=== PATIENT | male | born 1955 | race Caucasian/White ===

== ENCOUNTER → 2018-01-31 11:12 | Outpatient (CLI) | payer OTHER, SELFPAY ==
--- NOTE | 2018-01-31 | DI.RAD.S_ITS ---
PROCEDURE: XR RIBS RT 2V INDICATIONS: OTHER CHEST PAIN TECHNIQUE: 2 views of the right ribs were acquired. COMPARISON: None. FINDINGS: Surgical changes and devices: None. BB skin marker overlies the right lower rib cage. Bones and chest wall: No fractures or dislocations. No suspicious bony lesions. Overlying soft tissues appear unremarkable. Lungs and pleura: The visualized lung appears clear. No pleural effusions or pneumothorax are visible. IMPRESSION: No right-sided rib abnormality. No pleural or pulmonary abnormality seen. Dictated by: Lenin Rosa M.D. on 01/31/2018 at 11:58 Approved by: Lenin Rosa M.D. on 01/31/2018 at 11:59
== END ==
PROVIDERS: Visit Provider Internal Medicine
DX: R07.89 Other chest pain (principal)
CPT/HCPCS: 71100

== ENCOUNTER → 2019-07-03 06:43 | Outpatient (CLI) | payer OTHER, SELFPAY ==
--- NOTE | 2019-07-03 | DI.ECHO.S_ITS ---
[facility]+ [facility] +---------+ : : [address] : : : : [id number] : : : : Phone: [phone]+ Echocardiogram Report + + :Name: BERLIN PUGH Study Date: 07/03/2019 Height: 72 in : :[facility] Weight: 204 lb : : Gender: Male BSA: 2.1 m2 : :: 1955 Age: 64 yrs BP: 134/84 mmHg: :Reason For Study: MURMUR : : Performed By: Tem Staff : :Referring: BELEN FOSTER : + + Interpretation Summary 1) Mildly increased left ventricular thickness (concentric) with normal size, normal wall motion, and normal systolic function (EF 60-65%). 2) Normal right ventricular size and function. 3) The left atrium is severely dilated. The right atrium is moderately dilated. 4) No significant valvular abnormalities. 5) No prior Echo available for comparison. Procedure: A two-dimensional transthoracic echocardiogram with color flow and Doppler was performed. The study quality was technically adequate. There is no prior echocardiogram noted for this patient. The patient was in normal sinus rhythm during the exam. Left Ventricle: The left ventricle is borderline dilated. There is mild concentric left ventricular hypertrophy. Left ventricular systolic function is normal. The ejection fraction is estimated to be 60-65%. Left ventricular wall motion is normal. Right Ventricle: The right ventricle is normal in size and function. Atria: The left atrium is severely dilated. The right atrium is moderately dilated. The interatrial septum is intact with no evidence for an atrial septal defect. Mitral Valve: The mitral valve is normal in structure and function. There is trace mitral regurgitation. Aortic Valve: The aortic valve is trileaflet. The aortic valve opens well. There is no aortic valve stenosis. No aortic regurgitation is present. Tricuspid Valve: The tricuspid valve is normal in structure and function. There is mild tricuspid regurgitation. Pulmonary artery pressures cannot be estimated because of the lack of a measurable TR jet velocity. Pulmonic Valve: The pulmonic valve is normal in structure and function. There is trace pulmonic regurgitation. Great Vessels: The aortic root is normal size. The dimensions of the ascending aorta are normal. The pulmonary artery is normal size. The inferior vena cava was not visualized. Pericardium/ Pleura There is a trivial pericardial effusion noted. There is no pleural effusion. MMode/2D Measurements & Calculations LVIDd: 5.7 cm LVOT diam: 2.2 cm LVIDs: 3.7 cm Ao root diam: 3.5 cm FS: 34.7 % EPSS: 0.23 cm IVSd: 1.3 cm LVPWd: 1.2 cm LV saab. diameter/BSA (cm/m^2): 2.7 LV sys. diameter/BSA (cm/m^2): 1.7 LA A2 area: 31.6 cm2 RA long axis: 6.7 cm LA A4 area: 30.5 cm2 RA area: 25.0 cm2 LA length (vol): 6.4 cm RA vol: 79.2 ml LA vol: 126.7 ml RA : 36.9 ml/m2 LA vol index: 59.0 ml/m2 TAPSE: 2.9 cm Doppler Measurements & Calculations Ao V2 max: 173.6 cm/sec LVOT Max Martín: 168.6 cm/sec Ao V2 mean: 116.3 cm/sec LV V1 max P.4 mmHg Ao max P.1 mmHg LV V1 VTI: 38.3 cm Ao mean P.3 mmHg MARTELL(I,D): 3.7 cm2 Ao V2 VTI: 38.7 cm MARTELL(V,D): 3.6 cm2 sev ratio: 0.99 MARTELL indexed to BSA (cm^2/m^2): 1.7 MV E max martín: 76.6 cm/sec TR max martín: 296.4 cm/sec MV A max martín: 74.0 cm/sec TR max P.5 mmHg MV E/A: 1.0 PA V2 max: 111.9 cm/sec Med Peak E' Martín: 10.6 cm/sec PA V2 mean: 82.8 cm/sec E/E' med: 7.2 PA mean P.1 mmHg Lat Peak E' Martín: 10.8 cm/sec PA Accel Time: 0.13 sec E/E' lat: 7.1 E/e' average: 7.2 MV dec time: 0.14 sec SV(LVOT): 141.3 ml Reading Physician:08:57 AM
== END ==
PROVIDERS: PCP Internal Medicine; Visit Provider Internal Medicine
DX: I07.1 Rheumatic tricuspid insufficiency (principal); R01.1 Cardiac murmur, unspecified
CPT/HCPCS: 93306

== ENCOUNTER 2025-05-01 15:58 | Emergency (ER) | payer MEDICARE, OTHER, SELFPAY ==
[2025-05-01] VITALS (9 sets, daily range): BP systolic 130–166; BP diastolic 70–86; PULSE 63–79; RESP 16; TEMP 36.6; O2SAT 91–99; BMI 27.1
--- NOTE | 2025-05-01 18:01 | ED_ITS ---
HPI - Male Genitourinary General Chief complaint: Urogenital-Male Stated complaint: urogenital male Time Seen by Provider: 05/01/25 18:00 Source: patient Mode of arrival: Family Vehicle History of Present Illness HPI Narrative: 70-year-old gentleman we have appendectomy, TURP, hypertension, presents with decreased urine output over the last 5 days along with constipation and intermittent back pain presents for further evaluation today. He had a full cardiac workup days ago with negative pathology by his commercial loan officer. He denies fever, chills, bodyaches, nausea, vomiting, diarrhea, dysuria, hematuria. Nothing makes it better or worse. He has been drinking water. Other than what is stated 14 point review of system is negative. Related Data Home Medications ?Medication ?Instructions ?Recorded ?Confirmed lisinopril 10 mg tablet 40 mg PO QDAY ##0 09/13/11 Previous Rx's ?Medication ?Instructions ?Recorded nitrofurantoin 100 mg PO Q12H 5 days #10 ca ps 05/01/25 monohydrate/macrocrystals 100 mg capsule (Macrobid) nitrofurantoin 100 mg PO Q12H 5 days #10 ca ps 05/01/25 monohydrate/macrocrystals 100 mg capsule (Macrobid) nitrofurantoin 100 mg PO Q12H 5 days #10 ca ps 05/01/25 monohydrate/macrocrystals 100 mg capsule (Macrobid) tamsulosin 0.4 mg capsule (Flomax) 0.4 mg PO BEDTIME # 30 caps 05/01/25 Allergies Allergy/AdvReac Type Severity Reaction Status Date / Time No Known Drug Allergies Allergy Verified 05/01/25 16:05 Review of Systems Review of Systems ROS Unobtainable: All systems reviewed & are unremarkable except as noted in HPI and below Exam Narrative Exam Narrative: GENERAL: [70] year old patient appears stated age. Well-developed patient, in mild distress. HEAD: Atraumatic. Normocephalic. EYES: Pupils equal round and reactive. Extraocular motions intact. No scleral icterus. No injection or drainage. ENT: Nose without bleeding, purulent drainage. Throat without erythema, tonsillar hypertrophy or exudate. Airway patent. NECK: Trachea midline. Non tender CARDIOVASCULAR: Regular rate and rhythm without murmurs, gallops, or rubs. RESPIRATORY: Clear to auscultation. Breath sounds equal bilaterally. No wheezes, rales, or rhonchi. GASTROINTESTINAL: Abdomen soft, non-tender, nondistended. EXTREMITIES: No edema or joint tenderness. BACK: Nontender without deformity or crepitance. No flank tenderness. NEURO: AOx3. SKIN: No rash or erythema of visible areas Initial Vital Signs Initial Vital Signs: Vital Signs Temperature 97.9 F 05/01/25 16:04 Pulse Rate 79 05/01/25 16:04 Respiratory Rate 16 05/01/25 16:04 Blood Pressure 166/86 H 05/01/25 16:04 Pulse Oximetry 98 05/01/25 16:04 Oxygen Delivery Method Room Air 05/01/25 16:04 Course Orders Ordered: ED Orders 05/01/25 18:01 CT abdomen pelvis w con Stat XR chest 1V Stat Covid-19 + FLU A/B + RSV - PCR Stat EKG-12 Lead Stat 05/01/25 18:18 Complete Blood Count AUTO DIFF Stat Comprehensive Metabolic Panel Stat Lipase Stat Troponin & CK Cardiac Panel Stat 05/01/25 19:06 Urinalysis and Microscopic Stat Urine Culture Stat 05/01/25 19:15 Blood Culture Stat Discontinued Medications Lactated Ringer's (Lactated Ringers) 1,000 mls @ 1,000 mls/hr IV BOLUS ONE Stop: 05/01/25 19:01 Last Admin: 05/01/25 18:38 Dose: 1,000 mls/hr Documented By: SCOTTIE Ceftriaxone Sodium 1,000 mg/ (Sodium Chloride) 100 mls @ 200 mls/hr IV NOW ONE Stop: 05/01/25 19:54 Vital Signs Vital signs: Vital Signs - 8 hr 05/01/25 16:04 05/01/25 18:16 05/01/25 18:17 Temperature 97.9 F Pulse Rate 79 64 Respiratory Rate 16 Blood Pressure 166/86 H 160/79 H Pulse Oximetry 98 99 Oxygen Delivery Method Room Air 05/01/25 18:17 05/01/25 18:30 05/01/25 18:30 Temperature Pulse Rate 64 71 Respiratory Rate Blood Pressure 157/86 H Pulse Oximetry 97 96 Oxygen Delivery Method 05/01/25 19:07 Temperature Pulse Rate 63 Respiratory Rate Blood Pressure Pulse Oximetry 91 Oxygen Delivery Method MDM - Male Genitourinary Lab Data 05/01/25 18:18 05/01/25 18:18 Labs: Lab Results 05/01/25 05/01/25 Range/Units 18:18 19:06 WBC 7.0 (4.5-11.0) X10^3/uL RBC 5.09 (4.5-5.9) X10^6/uL Hgb 15.2 (13.5-17.5) g/dL Hct 43.8 (41-53) % MCV 86.0 (80-100) fL MCH 29.9 (26-34) PG MCHC 34.8 (30-36) % RDW 13.9 (11.6-14.8) % Plt Count 196 (150-400) X10^3/uL Neut % (Auto) 64.8 (50-75) % Lymph % (Auto) 25.5 (25-40) % [place] % (Auto) 7.5 (3-14) % Eos % (Auto) 1.4 L (2-4) % Baso % (Auto) 0.8 (0-2) % Neut # (Auto) 4500 (6645-6944) /uL Lymph # (Auto) 1800 (5771-3146) /uL [place] # (Auto) 500 (0-900) /uL Eos # (Auto) 100 (0-450) /uL Baso # (Auto) 100 (0-100) /uL Sodium 142 (137-145) mmol/L Potassium 3.5 (3.4-5.1) mmol/L Chloride 109 H (98-107) mmol/L Carbon Dioxide 24 (22-32) mmol/L BUN 18 (9-20) mg/dL Creatinine 1.04 (0.66-1.25) mg/dL Estimated GFR > 60 (>60) mL/min BUN/Creatinine Ratio 17.3 (6-22) Glucose 101 H (70-99) mg/dL Calcium 9.1 (8.4-10.2) mg/dL Total Bilirubin 0.5 (0.2-1.3) mg/dL AST 46 (17-59) IU/L ALT 25 (<50) IU/L Alkaline Phosphatase 64 (38-126) U/L Total Creatine Kinase 76 (55-170) U/L Troponin I < 0.012 (0.01-0.034) ng/mL Total Protein 7.0 (6.3-8.2) g/dL Albumin 4.4 (3.5-5.0) g/dL Globulin 2.6 (1.7-4.1) g/dL Albumin/Globulin Ratio 1.7 (1.0-2.8) Lipase 61 (23-300) U/L Urine Color Yellow Urine Appearance Clear Urine pH 5.5 (4.5-8.0) Ur Specific [place] 1.020 (1.000-1.035) Urine Protein Trace H (Negative) Urine Glucose (UA) Negative (Negative) g/dL Urine Ketones Trace H (NEGATIVE) Urine Occult Blood Negative (Negative) Urine Nitrate Positive H (Negative) Urine Bilirubin Negative (NEGATIVE) Urine Urobilinogen 1.0 (0.2) E.U./dL Ur Leukocyte Esterase Negative (NEGATIVE) Urine RBC None seen (0-5/HPF) Urine WBC 0-1/hpf (0-5/HPF) Ur Squamous Epith Cells None seen (0-5/HPF) Ur Transition Epith Cell None seen (0-5/HPF) Ur Renal Epithelial Cell None seen (0-1/HPF) Calcium Oxalate Crystal Few H Urine Bacteria None seen (None) Ur Culture Indicated? Specimen cultured Vol Urine Centrifuged 10ml (spun) Imaging Data CT scan - abdomen/pelvis: Radiologist's Impression: [place] [address] CT Scan Report Signed Patient: Kirill Castillo MR#: [id number] : 1955 Acct:[id number] Age/Sex: 70 / M Date of Service: 05/01/25 Loc: ED Accession Number: [id number] Procedure: CT abdomen pelvis w con Ordering Provider: Valentin Balbuena D.O. PROCEDURE: CT ABDOMEN PELVIS W CON INDICATIONS: abd pain/ dec urine output TECHNIQUE: After the administration of intravenous contrast, axial sections acquired from the lung bases to the pubic symphysis. Coronal and sagittal reformats were performed. For radiation dose reduction, the following was used: automated exposure control, adjustment of mA and/or kV according to patient size. COMPARISON: None. FINDINGS: Image quality: Diagnostic. Lower Chest: No significant findings. ABDOMEN: Liver: No solid mass. Gallbladder: No radiopaque gallstones or wall thickening. Biliary ducts: No biliary dilation. Pancreas: No ductal dilation. Spleen: Size is within normal limits. Adrenal Glands: No adrenal nodules. Kidneys and Ureters: Mild bilateral hydronephrosis without visualized stone.. No solid mass. No complex renal cystic lesion which requires follow up. Stomach and Bowel: Normal colonic caliber, without significant wall thickening. Nonvisualized appendix. A loop of the sigmoid colon extends into a left indirect inguinal hernia. No CT findings of strangulation. Peritoneum: No abnormal intraperitoneal fluid. No free air. Ventral Wall: No significant ventral hernia. Abdominal Nodes: No retroperitoneal or mesenteric adenopathy by size criteria. Vessels: Aorta and inferior vena cava are normal in size. PELVIS: Pelvic Organs: Changes of TURP procedure. Bladder: Left lateral bladder wall diverticulum. No stone. Pelvic Nodes: No enlarged lymph nodes. Miscellaneous: No inguinal hernias are seen. Bones: No aggressive osseous abnormality. IMPRESSION: 1. Bilateral mild hydroureteronephrosis without stone. This may represent chronic dilation the bilateral ureters secondary to chronic outlet obstruction in the setting of TURP procedure. 2. Fat and bowel containing left inguinal hernia without findings of strangulation. Chest x-ray: Radiologist's Impression: [place] [address] XRay Report Signed Patient: Kirill Castillo MR#: [id number] : 1955 Acct:[id number] Age/Sex: 70 / M Date of Service: 05/01/25 Loc: ED Accession Number: [id number] Procedure: XR chest 1V Ordering Provider: Valentin Balbuena D.O. PROCEDURE: XR CHEST 1V INDICATIONS: chest pain TECHNIQUE: One view of the chest was acquired. COMPARISON: None. FINDINGS: Surgical changes and devices: None. Lungs and pleura: Lungs are clear. No pleural effusions or pneumothorax. Mediastinum: Mediastinal contours appear normal. Heart size is normal. Bones and chest wall: No suspicious bony lesions. Overlying soft tissues appear unremarkable. IMPRESSION: No acute cardiopulmonary abnormality is seen. ECG Data Interpretation: NSR HR 71 NE 198 QRS [address]-t wave change No previous EKG to compare MDM Narrative Medical decision making narrative: All lab work vital signs nurse triage note medication list previous ER visits in all imaging studies reviewed. Chest x-ray showed no acute process. CT abdomen pelvis showed bilateral mild hydro ureteral nephrosis without stone. This may represent chronic dilatation of the ureter secondary to chronic outlet obstruction in the setting of TURP. Fat and bowel containing left inguinal hernia without findings of strangulation. WBC 7 hemoglobin 15.2 platelet 196. UA shows positive nitrites trace ketones trace protein CT scan showed bilateral mild hydro ureteral nephrosis without stone. This may represent chronic dilatation the bilateral ureters secondary to chronic outlet obstruction in the setting of TURP. Fat and bowel containing left inguinal hernia without signs of strangulation. Patient is able to urinate without any difficulty. Patient given Rocephin Flomax and fluids here. Differential diagnosis kidney stone, kidney infection, BPH, diverticulitis,uti. D/c home on Macrobid and Flomax. Discharge Plan Departure Patient Disposition: Home Clinical Impression: Acute UTI, Acute urinary retention Hydronephrosis Qualifiers: Hydronephrosis type: unspecified Qualified Code(s): N13.30 - Unspecified hydronephrosis Instructions: DI for Urinary Tract Infection (UTI) Activity Restrictions/Additional Instructions: Return with new or worsening symptoms. Take your medicines as directed. Follow up PCP in 1-2 weeks if no improvement in symptoms. Prescriptions: New tamsulosin [Flomax] 0.4 mg capsule 0.4 mg PO BEDTIME Qty: 30 0RF nitrofurantoin monohyd/m-cryst [Macrobid] 100 mg capsule 100 mg PO Q12H 5 Days Qty: 10 0RF Rx Instructions: must administer with a meal/food nitrofurantoin monohyd/m-cryst [Macrobid] 100 mg capsule 100 mg PO Q12H 5 Days Qty: 10 0RF Rx Instructions: must administer with a meal/food nitrofurantoin monohyd/m-cryst [Macrobid] 100 mg capsule 100 mg PO Q12H 5 Days Qty: 10 0RF Rx Instructions: must administer with a meal/food No Action lisinopril 10 MG tablet 40 mg PO QDAY Qty: 0 Referrals: Maribel Contreras ARNP [Primary Care Provider, Family Practice] Stand Alone Forms: Patient Portal/API
--- NOTE | 2025-05-01 18:01 | DI.RAD.S_ITS ---
PROCEDURE: XR CHEST 1V INDICATIONS: chest pain TECHNIQUE: One view of the chest was acquired. COMPARISON: None. FINDINGS: Surgical changes and devices: None. Lungs and pleura: Lungs are clear. No pleural effusions or pneumothorax. Mediastinum: Mediastinal contours appear normal. Heart size is normal. Bones and chest wall: No suspicious bony lesions. Overlying soft tissues appear unremarkable. IMPRESSION: No acute cardiopulmonary abnormality is seen. Dictated by: Mt Franco M.D. on 05/01/2025 at 18:37 Approved by: Mt Franco M.D. on 05/01/2025 at 18:37
[2025-05-01] MEDS: LACTATED RINGERS 1,000 ML 1000 ML IV (18:38)
--- NOTE | 2025-05-01 19:21 | EKG_ITS ---
[address] [address] Test Date: 2025-05-01 Pat Name: Kirill Castillo Department: [facility] Room: Gender: Male [employer] Clerk: STERLING : 1955 Requested By: Order Number: [id number] Reading MD: Valentin English MD Measurements Intervals Olga Rate: 71 P: 55 MA: 198 QRS: 12 QRSD: 98 T: 21 QT: 414 QTc: 449 Interpretive Statements Normal sinus rhythm Nonspecific T wave abnormality Electronically Signed On 05-02-2025 7:09:54 PDT by Valentin English MD
[2025-05-01 19:34] LABS: Appearance Urine UA CLEAR; Bilirubin Urine UA NEGATIVE (NEGATIVE); Color Urine UA YELLOW; Glucose Urine UA NEGATIVE (Negative); Ketones Urine UA TRACE (NEGATIVE); Leukocyte Esterase Urine UA NEGATIVE (NEGATIVE); Nitrite Urine UA POSITIVE (Negative); Occult Blood Urine UA NEGATIVE (Negative); Protein Urine UA TRACE (Negative); Specific Gravity Urine UA 1.020 (1.000-1.035); Urobilinogen Urine UA 1.0 E.U./dL (0.2); pH Urine UA 5.5 (4.5-8.0)
[2025-05-01 19:50] LABS: Add Manual Diff / Slide Review NO; Hematocrit 43.8 % (41-53); Hemoglobin 15.2 g/dL (13.5-17.5); Lymphocytes Absolute Auto 1800 /uL (1100-4500); Mean Corpuscular HGB Conc 34.8 % (30-36); Mean Corpuscular Hemoglobin 29.9 PG (26-34); Mean Corpuscular Volume 86.0 fL (80-100); Platelet Count 196 X10^3/uL (150-400)
[2025-05-01 19:52] LABS: Culture Indicated Urine Specimen Cultured
[2025-05-01 20:00] LABS: Alanine Aminotransferase 25 IU/L (<50); Albumin 4.4 g/dL (3.5-5.0); Albumin Globulin Ratio 1.7 (1.0-2.8); Alkaline Phosphatase 64 U/L (38-126); Blood Urea Nitrogen 18 mg/dL (9-20); Calcium 9.1 mg/dL (8.4-10.2); Carbon Dioxide 24 mmol/L (22-32); Chloride 109 mmol/L (98-107); Creatine Kinase 76 U/L (55-170); Estimated Glomerular Filt Rate > 60 mL/min (>60); Globulin 2.6 g/dL (1.7-4.1); Glucose 101 mg/dL (70-99); HEMOLYSIS < 15 (0-50); Lipase 61 U/L (23-300); Potassium 3.5 mmol/L (3.4-5.1); Sodium 142 mmol/L (137-145); Total Protein 7.0 g/dL (6.3-8.2)
[2025-05-01 20:11] LABS: Troponin I < 0.012 ng/mL (0.01-0.034)
[2025-05-01] MEDS: TAMSULOSIN 0.4 MG CAPSULE PO (20:36)
== END 2025-05-01 20:38 | disposition home or self-care (01) ==
PROVIDERS: Emergency Provider Family Medicine; PCP Internal Medicine
DX: N39.0 Urinary tract infection, site not specified (principal); R33.8 Other retention of urine; N13.30 Unspecified hydronephrosis; R07.9 Chest pain, unspecified
CPT/HCPCS: 36415; 71045; 74177; 80053; 81001; 82550; 83690; 84484; 85025; 87040; 87086; 93005; 93010; 96361; 96365; 99284; J0696; Q9967